=== PATIENT | male | born 1960 ===

== ENCOUNTER 2017-01-17 09:20 | Day surgery (SDC) | payer MEDICAID ==
[2017-01-13 12:18] VITALS: BMI 31.0
[2017-01-17 10:08] VITALS: RESP 18
[2017-01-17] MEDS ORDERED: Bupivacaine HCl 0.25% PF (10 ml) Inj ONE (11:22)
[2017-01-17] MEDS ORDERED: cefTRIAXone (Rocephin) 1 gm Inj ONE (11:23)
[2017-01-17] MEDS ORDERED: Propofol 10 mg/ml Inj (20 ML) ONE (11:37)
[2017-01-17] MEDS ORDERED: Midazolam 2 MG/2 ML VIAL ONE (11:38)
[2017-01-17] MEDS ORDERED: Lactated Ringer's 1,000 ML IV ONE ×2 (11:40→12:20)
[2017-01-17] MEDS ORDERED: Lactated Ringer's 1,000 ML IV SCH (12:34)
[2017-01-17] MEDS: HYDROmorphone 0.5 mg/0.5 ml ISec IVP PRN ×3 (12:38→13:15)
[2017-01-17] MEDS ORDERED: Oxycodone/Acetaminophen 5/325 mg Tab PO PRN (12:41)
[2017-01-17 15:22] VITALS: PULSE 68; TEMP 97.8; O2SAT 95
[2017-01-17 15:25] VITALS: BP 99/70
--- NOTE | 2017-01-17 23:03 | OP ---
PROCEDURE DATE: 01/17/2017 PREOPERATIVE DIAGNOSIS: Phimosis. POSTOPERATIVE DIAGNOSIS: Phimosis. PROCEDURE: Circumcision under general anesthesia. DESCRIPTION OF PROCEDURE: The patient is on the operating room table in a supine position. I made circumferential incisions on the redundant foreskin. I then removed the redundant foreskin. There was some bleeding noted that I cauterized immediately then I reapproximated the skin edges with multiple interrupted 4-0 Chromic suture. At the end, I placed compressive Coban dressing over a Vaseline gauze on the operative site. Blood loss was less than 5 mL. The patient sustained the procedure well and was taken from the operating room in good condition. Tonie Mcfarlane MD
== END 2017-01-17 16:00 | disposition home or self-care (01) ==
LOC: H.OPSURG 09:20
PROVIDERS: ATTEND Urology
DX: N47.1 Phimosis (principal); E11.9 Type 2 diabetes mellitus without complications; E78.5 Hyperlipidemia, unspecified; I10 Essential (primary) hypertension; Z87.891 Personal history of nicotine dependence